=== PATIENT | male | born 1965 | race Caucasian/White ===

== ENCOUNTER 2016-11-30 11:37 | Outpatient (CLI) | payer MEDICARE ==
[2016-11-30 12:31] LABS: Hemoglobin A1c 5.3 % (4.0-6.0)
[2016-11-30 17:37] LABS: Iron 95 ug/dL (65-175)
== END 2016-11-30 11:38 | disposition home or self-care (01) ==
LOC: BURLAB 11:37
PROVIDERS: ATTEND Psychiatry & Neurology Neurology
DX: G25.81 Restless legs syndrome (principal); R41.3 Other amnesia; R26.89 Other abnormalities of gait and mobility; E11.9 Type 2 diabetes mellitus without complications
CPT/HCPCS: 36415; 82607; 83036; 83540; 83550; 84443

== ENCOUNTER 2017-03-17 12:24 | Emergency (ER) | payer MEDICARE ==
[2017-03-17] MEDS ORDERED: Ketorolac Tromethamine 60 MG/2 ML VIAL ONE (12:59)
[2017-03-17] MEDS ORDERED: HYDROcodone/Acetaminophen 5/325 mg Tablet ONE (13:01)
== END 2017-03-17 13:31 | disposition home or self-care (01) ==
LOC: BURERS 12:24
DX: S39.012A Strain of muscle, fascia and tendon of lower back, initial encounter (principal); I10 Essential (primary) hypertension; G20 Parkinson's disease; Z79.899 Other long term (current) drug therapy; X58.XXXA Exposure to other specified factors, initial encounter
CPT/HCPCS: 96372; J1885